=== PATIENT | male | born 1940 | race Caucasian/White ===

== ENCOUNTER 2021-07-12 07:13 | Day surgery (SDC) | payer MEDICARE, OTHER ==
[2021-07-12] MEDS ORDERED: Glycopyrrolate 0.2 MG/ML 5 ML MDV IV ONE (07:14)
[2021-07-12] MEDS ORDERED: Propofol 200 MG/20 ML SDV IV ONE (07:14)
[2021-07-12] MEDS ORDERED: Sodium Chloride 0.9% 10 ML Syringe FLUSH PRN (07:15)
[2021-07-12] MEDS ORDERED: Lactated Ringers 1,000 ML IV SCH (07:15)
[2021-07-12] MEDS ORDERED: Simethicone Drops 40 MG/0.6 ML 30 ML Bottle ONE (09:08)
[2021-07-12 09:46] VITALS: BP 115/71; PULSE 84
== END 2021-07-12 10:15 | disposition home or self-care (01) ==
LOC: FB.SDS 07:13
PROVIDERS: ATTEND Surgery
DX: Z12.11 Encounter for screening for malignant neoplasm of colon (principal); D12.2 Benign neoplasm of ascending colon; K57.30 Diverticulosis of large intestine without perforation or abscess without bleeding; E66.9 Obesity, unspecified; E66.01 Morbid (severe) obesity due to excess calories; I12.9 Hypertensive chronic kidney disease with stage 1 through stage 4 chronic kidney disease, or unspecified chronic kidney disease; Z79.82 Long term (current) use of aspirin
CPT/HCPCS: 00811-QZ; 88305; A9270-GY; J2704; J3490; J7120

== ENCOUNTER 2024-08-13 21:41 | Inpatient (IN) | payer MEDICARE, OTHER ==
[2024-08-13] MEDS: Furosemide 40 MG/4 ML VIAL IVPUSH ONE (22:26)
[2024-08-13 22:52] LABS: INFLUENZA A NAA NEGATIVE (NEGATIVE); INFLUENZA B NAA NEGATIVE (NEGATIVE); RESPIRATORY SYNCYTIAL VIR NAA NEGATIVE (NEGATIVE)
[2024-08-13 22:53] LABS: CORONAVIRUS COVID-19 NAA NEGATIVE (NEGATIVE)
[2024-08-13 22:55] LABS: BASOPHILS PERCENT AUTO 0.3 % (0.3-3.8); EOSINOPHILS ABSOLUTE AUTO 0.1 x10-3/uL (0.0-0.6); EOSINOPHILS PERCENT AUTO 0.5 % (0.1-6.8); HEMATOCRIT 43.5 % (38.3-50.1); HEMOGLOBIN 14.6 g/dL (12.9-17.7); LYMPHOCYTES ABSOLUTE AUTO 1.5 x10-3/uL (0.5-4.5); LYMPHOCYTES PERCENT AUTO 11.4 % (15.8-45.3); MEAN CORPUSCULAR HEMOGLOBIN 32.1 pg (27.0-33.3); MEAN CORPUSCULAR HGB CONC 33.7 g/dL (28.7-35.3); MEAN CORPUSCULAR VOLUME 95.2 fL (80.8-98.7); MEAN PLATELET VOLUME 9.7 fL (6.7-11.0); MONOCYTES ABSOLUTE AUTO 1.9 x10-3/uL (0.0-1.2); NEUTROPHILS ABSOLUTE AUTO 9.8 x10-3/uL (1.7-6.9); NEUTROPHILS PERCENT AUTO 73.8 % (40.3-71.8); PLATELET COUNT,PLT 151 x10(3)uL (117-477); RED BLOOD CELL COUNT 4.57 x10(6)uL (3.90-5.90); RED CELL DISTRIBUTION WIDTH 14.4 % (12.4-15.0); WHITE BLOOD CELL COUNT,WBC 13.3 x10-3/uL (3.2-10.1)
[2024-08-13 22:57] LABS: BLOOD UREA NITROGEN,BUN 27 mg/dL (7-18); BUN/CREATININE RATIO 15.9 (9-20); CALCIUM 8.6 mg/dL (8.6-10.2); CARBON DIOXIDE,CO2 33 mmol/L (21-32); CHLORIDE,CL 101 mmol/L (100-110); CREATININE 1.7 mg/dL (0.70-1.30); ESTIMATED GFR 40 mL/min (>60); GLUCOSE RANDOM 168 mg/dL (80-116); POTASSIUM,K 4.6 mmol/L (3.5-5.3); SODIUM,NA 137 mmol/L (135-145)
[2024-08-13] MEDS ORDERED: Morphine 2 MG/ML SYRINGE IVPUSH PRN (22:57)
[2024-08-13 23:06] LABS: LACTIC ACID 1.5 mmol/L (0.4-2.0)
[2024-08-13 23:11] LABS: TROPONIN I 16.7 pg/mL (4.0-60.3)
[2024-08-13] MEDS: Albuterol 0.083% 2.5 MG/3 ML Neb Soln NEB PRN (23:58)
[2024-08-14] MEDS: cefTRIAXone 1 GM Vial IVPUSH SCH (00:04)
[2024-08-14] MEDS: Sodium Chloride 0.9% 1,000 ML IV SCH ×2 (00:11→08:15)
[2024-08-14] MEDS: Azithromycin 500 MG in Sodium Chloride 0.9% 250 ML IV SCH (00:18)
[2024-08-14] MEDS: Enoxaparin 30 MG/0.3 ML Syringe SUBCUT SCH (00:23)
[2024-08-14] MEDS: Acetaminophen 325 MG Tab PO PRN (00:27)
[2024-08-14 06:56] LABS: BASOPHILS PERCENT AUTO 0.2 % (0.3-3.8); EOSINOPHILS PERCENT AUTO 0.4 % (0.1-6.8); HEMATOCRIT 39.8 % (38.3-50.1); HEMOGLOBIN 13.3 g/dL (12.9-17.7); LYMPHOCYTES ABSOLUTE AUTO 1.6 x10-3/uL (0.5-4.5); LYMPHOCYTES PERCENT AUTO 14.3 % (15.8-45.3); MEAN CORPUSCULAR HGB CONC 33.4 g/dL (28.7-35.3); MEAN CORPUSCULAR VOLUME 95.7 fL (80.8-98.7); MEAN PLATELET VOLUME 9.2 fL (6.7-11.0); MONOCYTES ABSOLUTE AUTO 1.6 x10-3/uL (0.0-1.2); MONOCYTES PERCENT AUTO 14.1 % (5.5-15.2); PLATELET COUNT,PLT 126 x10(3)uL (117-477); RED BLOOD CELL COUNT 4.16 x10(6)uL (3.90-5.90); RED CELL DISTRIBUTION WIDTH 14.6 % (12.4-15.0); WHITE BLOOD CELL COUNT,WBC 11.2 x10-3/uL (3.2-10.1)
[2024-08-14 07:08] LABS: A/G RATIO 0.6; ALANINE AMINOTRANSFERASE,ALT 31 U/L (12-36); ALBUMIN 2.5 g/dL (3.2-4.6); ALKALINE PHOSPHATASE 93 IU/L (56-112); ASPARTATE AMNIOTRANSFERASE,AST 27 IU/L (5-25); BILIRUBIN TOTAL 1.4 mg/dL (0.1-1.3); BLOOD UREA NITROGEN,BUN 30 mg/dL (7-18); BUN/CREATININE RATIO 16.7 (9-20); CALCIUM 7.9 mg/dL (8.6-10.2); CARBON DIOXIDE,CO2 34 mmol/L (21-32); CHLORIDE,CL 103 mmol/L (100-110); CREATININE 1.8 mg/dL (0.70-1.30); ESTIMATED GFR 37 mL/min (>60); GLUCOSE RANDOM 139 mg/dL (80-116); POTASSIUM,K 4.2 mmol/L (3.5-5.3); PROTEIN TOTAL,TP 6.4 g/dL (6.0-8.0); SODIUM,NA 139 mmol/L (135-145)
[2024-08-14 07:14] LABS: C-REACTIVE PROTEIN 18.19 mg/dL (<0.50)
[2024-08-14] MEDS: Iopamidol 755 Mg/ML 100 ML Bottle IV SCH (09:54)
[2024-08-14] MEDS: Hydrochlorothiazide 25 MG Tab PO SCH (10:34)
[2024-08-14] MEDS: Aspirin 81 MG Tab.EC PO SCH (10:34)
[2024-08-14] MEDS: Lisinopril 20 MG Tab PO SCH (10:34)
[2024-08-14] MEDS: Sodium Chloride 0.9% 10 ML Syringe FLUSH PRN (23:23)
[2024-08-15 06:47] LABS: BASOPHILS PERCENT AUTO 0.3 % (0.3-3.8); EOSINOPHILS ABSOLUTE AUTO 0.2 x10-3/uL (0.0-0.6); EOSINOPHILS PERCENT AUTO 2.3 % (0.1-6.8); HEMATOCRIT 38.4 % (38.3-50.1); LYMPHOCYTES ABSOLUTE AUTO 1.5 x10-3/uL (0.5-4.5); LYMPHOCYTES PERCENT AUTO 17.1 % (15.8-45.3); MEAN CORPUSCULAR HEMOGLOBIN 32.8 pg (27.0-33.3); MEAN CORPUSCULAR HGB CONC 33.9 g/dL (28.7-35.3); MEAN CORPUSCULAR VOLUME 96.7 fL (80.8-98.7); MEAN PLATELET VOLUME 9.5 fL (6.7-11.0); MONOCYTES ABSOLUTE AUTO 1.2 x10-3/uL (0.0-1.2); MONOCYTES PERCENT AUTO 13.2 % (5.5-15.2); NEUTROPHILS PERCENT AUTO 67.1 % (40.3-71.8); PLATELET COUNT,PLT 123 x10(3)uL (117-477); RED BLOOD CELL COUNT 3.97 x10(6)uL (3.90-5.90); RED CELL DISTRIBUTION WIDTH 14.2 % (12.4-15.0)
[2024-08-15 07:00] LABS: A/G RATIO 0.6; ALANINE AMINOTRANSFERASE,ALT 43 U/L (12-36); ALBUMIN 2.2 g/dL (3.2-4.6); ALKALINE PHOSPHATASE 102 IU/L (56-112); ASPARTATE AMNIOTRANSFERASE,AST 53 IU/L (5-25); BILIRUBIN TOTAL 0.5 mg/dL (0.1-1.3); BLOOD UREA NITROGEN,BUN 31 mg/dL (7-18); BUN/CREATININE RATIO 20.7 (9-20); CALCIUM 7.6 mg/dL (8.6-10.2); CARBON DIOXIDE,CO2 33 mmol/L (21-32); CHLORIDE,CL 103 mmol/L (100-110); CREATININE 1.5 mg/dL (0.70-1.30); ESTIMATED GFR 46 mL/min (>60); GLUCOSE RANDOM 131 mg/dL (80-116); POTASSIUM,K 4.2 mmol/L (3.5-5.3); SODIUM,NA 140 mmol/L (135-145)
[2024-08-15] MEDS: Lisinopril 20 MG Tab PO SCH (08:36)
[2024-08-15] MEDS ORDERED: Albuterol/Ipratropium 3.0-0.5 MG/3 ML Neb Soln NEB PRN (08:57)
[2024-08-15] MEDS ORDERED: Lisinopril 20 MG Tab PO SCH (09:00)
[2024-08-15] MEDS: Lisinopril 20 MG Tab PO ONE (09:38)
[2024-08-15] MEDS: Albuterol/Ipratropium 3.0-0.5 MG/3 ML Neb Soln NEB SCH ×2 (10:16→10:17)
[2024-08-16 06:31] LABS: BASOPHILS PERCENT AUTO 0.3 % (0.3-3.8); EOSINOPHILS ABSOLUTE AUTO 0.2 x10-3/uL (0.0-0.6); EOSINOPHILS PERCENT AUTO 3.3 % (0.1-6.8); HEMATOCRIT 36.9 % (38.3-50.1); HEMOGLOBIN 12.3 g/dL (12.9-17.7); LYMPHOCYTES ABSOLUTE AUTO 1.3 x10-3/uL (0.5-4.5); LYMPHOCYTES PERCENT AUTO 18.1 % (15.8-45.3); MEAN CORPUSCULAR HEMOGLOBIN 31.9 pg (27.0-33.3); MEAN CORPUSCULAR HGB CONC 33.3 g/dL (28.7-35.3); MEAN CORPUSCULAR VOLUME 95.6 fL (80.8-98.7); MONOCYTES ABSOLUTE AUTO 0.9 x10-3/uL (0.0-1.2); MONOCYTES PERCENT AUTO 12.4 % (5.5-15.2); NEUTROPHILS ABSOLUTE AUTO 4.6 x10-3/uL (1.7-6.9); NEUTROPHILS PERCENT AUTO 65.9 % (40.3-71.8); PLATELET COUNT,PLT 125 x10(3)uL (117-477); RED BLOOD CELL COUNT 3.86 x10(6)uL (3.90-5.90); RED CELL DISTRIBUTION WIDTH 14.4 % (12.4-15.0)
[2024-08-16 06:41] LABS: A/G RATIO 0.6; ALANINE AMINOTRANSFERASE,ALT 58 U/L (12-36); ALBUMIN 2.2 g/dL (3.2-4.6); ALKALINE PHOSPHATASE 107 IU/L (56-112); ASPARTATE AMNIOTRANSFERASE,AST 67 IU/L (5-25); BILIRUBIN TOTAL 0.5 mg/dL (0.1-1.3); BLOOD UREA NITROGEN,BUN 36 mg/dL (7-18); BUN/CREATININE RATIO 25.7 (9-20); CALCIUM 7.7 mg/dL (8.6-10.2); CARBON DIOXIDE,CO2 32 mmol/L (21-32); CHLORIDE,CL 102 mmol/L (100-110); CREATININE 1.4 mg/dL (0.70-1.30); ESTIMATED GFR 50 mL/min (>60); GLUCOSE RANDOM 155 mg/dL (80-116); PROTEIN TOTAL,TP 5.8 g/dL (6.0-8.0); SODIUM,NA 137 mmol/L (135-145)
[2024-08-16] MEDS: predniSONE 20 MG Tab PO SCH (08:29)
[2024-08-16] MEDS: Nystatin Topical Powder 15 GM Bottle TOP SCH (10:44)
[2024-08-16] MEDS: Albuterol 6.7 GM Inhaler INH PRN (20:05)
[2024-08-17 08:54] VITALS: BP 122/59
[2024-08-17 10:39] VITALS: PULSE 79
== END 2024-08-17 13:00 | disposition home or self-care (01) | DRG 202 ==
LOC: FB.ED 21:41 → FB.MS 22:57
PROVIDERS: ADMIT Family Medicine; ATTEND Family Medicine
DX: J18.9 Pneumonia, unspecified organism (principal); J20.9 Acute bronchitis, unspecified; J96.01 Acute respiratory failure with hypoxia; N17.9 Acute kidney failure, unspecified; Z79.82 Long term (current) use of aspirin; Z66 Do not resuscitate; Z68.38 Body mass index [BMI] 38.0-38.9, adult; I10 Essential (primary) hypertension; J98.9 Respiratory disorder, unspecified; E86.0 Dehydration; K80.20 Calculus of gallbladder without cholecystitis without obstruction; M19.90 Unspecified osteoarthritis, unspecified site; E66.9 Obesity, unspecified; Z79.899 Other long term (current) drug therapy; Z90.49 Acquired absence of other specified parts of digestive tract
CPT/HCPCS: 0241U; 36415; 71045; 71046; 71275; 80048; 80053; 83605; 83880; 84484; 85025; 85379; 86140; 87040; 93005; 94150; 94640; 97161-GP; 97165-GO; 97530-GO; 99223; 99232; 99238; A9270-GY; J0456; J0696; J1650; J1940; J7030; J7050; J7512; Q9967